=== PATIENT | male | born 1960 | race Caucasian/White ===

== ENCOUNTER 2021-05-12 11:07 | Inpatient (IN) | payer OTHER ==
[~2021-05-12] VITALS: Ht 190.5 cm; Wt 110.6 kg
[~2021-05-12 11:07] MED LIST: CLINDAMYCIN300 MG PO; FLAGYL500 MG PO; FLEXERIL10 MG PO; LORTAB 7.5/5001 TAB PO; PERCOCET 325 MG1 TA2 PO; [UNRECOGNIZED DRUG - OTHER]
[2021-05-12 13:17] LABS: HEMATOCRIT 40.2 % (42.0-52.0); HEMOGLOBIN 14.3 g/dl (13.5-18.0); MEAN CELL VOLUME 88 fl (80.0-100.0); MEAN CORPUSCULAR HEMOGLOBIN 31 pg (27-31); MEAN CORPUSCULAR HGB CONC 36 g/dl (33.0-37.0); MEAN PLATELET VOLUME 9.6 fl (7.4-10.4); PLATELET COUNT 176 K/mm3 (130-400); RED BLOOD COUNT 4.58 M/mm3 (4.20-5.60); REDCELL DISTRIBUTION WIDTH-CV 11.6 % (11.5-14.5)
[2021-05-12 13:36] LABS: CALCIUM 8.5 mg/dL (8.4-10.2); POTASSIUM 3.5 mmol/L (3.5-4.5); TOTAL PROTEIN 7.3 gm/dL (6.2-8.1)
[2021-05-12 13:38] LABS: BAND 14 % (0-10); NEUTROPHILS 62 % (42.0-75.2); PLATELET ESTIMATE NORMAL (NORMAL)
[2021-05-12 13:39] LABS: LYMPHOCYTE 15 % (20.0-51.0)
[2021-05-12 13:43] LABS: TROPONIN-I 0.029 ng/mL (0.00-0.033)
[2021-05-12 13:50] LABS: ARTERIAL BLD GAS O2 SATURATION 94.3 % (92-100); ARTERIAL BLD GAS TCO2 CT 26.2; ARTERIAL BLOOD GAS BASE EXCESS 3.2 (-2-2); ARTERIAL BLOOD GAS HCO3 25.3 meq/L (22-26); ARTERIAL BLOOD GAS PCO2 31.2 mmHg (35-45); ARTERIAL BLOOD GAS PO2 64.4 mmHg (80-100); ARTERIAL BLOOD GAS pH 7.53 (7.35-7.45)
[2021-05-12 14:32] LABS: ALBUMIN 3.1 gm/dL (3.4-4.8); CREATININE, serum 1.01 mg/dL (0.72-1.25)
[2021-05-12 15:48] LABS: COLLECTION METHOD CLEAN CATCH
[2021-05-12 15:55] LABS: MUCOUS Present (NOT PRESENT); PH 5 (5-8); SQUAMOUS EPITHELIAL None Seen /hpf (0-10); URINE APPEARANCE Clear (CLEAR/HAZY); URINE BILIRUBIN Negative (NEGATIVE); URINE BLOOD 1+ (NEGATIVE); URINE COLOR Yellow (YELLOW); URINE GLUCOSE Negative (NEGATIVE); URINE KETONE Negative (NEGATIVE); URINE LEUKOCYTE ESTERASE Negative (NEGATIVE); URINE NITRATE Negative (NEGATIVE); URINE PROTEIN(semi-quant) Negative (NEGATIVE); URINE RBC None Seen /hpf (0-2); URINE UROBILINOGEN Negative (NEGATIVE)
[2021-05-12 16:00] LABS: URINE BACTERIA None Seen /hpf (NONE SEEN)
[2021-05-12 19:50] VITALS: BP 118/82; PULSE 94; TEMP 99.8
[2021-05-12 19:54] VITALS: BP 130/62; PULSE 78; TEMP 97.8
--- NOTE | 2021-05-12 21:06 | NUR ---
Admission assessment completed alert/oriented, vital signs stable, lungs CTA/ diminished lower lobes, requiring 7L. o2 to maintain sats, heart RRR/distal pulses are palpable, hx of CAD with stents 3hr troponin 0.34 and 6hr WNL, denies any chest pain or discomfort, SR on tele, has a cough / procutive of yellowish/clear sputum at times, I did not observe any sputum at this time, PMH/ meds/ allergies/ pharmacy reviewed with the patient, he denies other needs at this time, will continue to monitor
[2021-05-12 23:51] VITALS: BP 123/77; PULSE 59; TEMP 98.7
[2021-05-13 04:46] VITALS: BP 140/118; PULSE 63; TEMP 98.8
[2021-05-13 05:25] VITALS: BP 142/79; PULSE 81
[2021-05-13] MEDS ORDERED: ASPIRIN E.C. 8181 MG PO (05:27)
[2021-05-13] MEDS ORDERED: ZESTRIL 10MG10 MG PO (05:27)
[2021-05-13] MEDS ORDERED: SYNTHROID0.175 MG PO (05:28)
[2021-05-13] MEDS ORDERED: NITROSTAT0.4 MG/TAB SL (05:29)
[2021-05-13 07:43] LABS: BASO % 0.2 % (0.0-2.0); GRAN % 87.5 % (42.2-75.2); HEMATOCRIT 43.7 % (42.0-52.0); LYMPH # 0.9 K/mm3 (1.2-3.4); LYMPH % 8.8 % (20.0-51.0); MEAN CELL VOLUME 91 fl (80.0-100.0); MEAN CORPUSCULAR HEMOGLOBIN 31 pg (27-31); MEAN CORPUSCULAR HGB CONC 34 g/dl (33.0-37.0); MEAN PLATELET VOLUME 10.2 fl (7.4-10.4); MONO # 0.3 K/mm3 (0.1-0.6); MONO % 2.8 % (1.7-9.3); PLATELET COUNT 245 K/mm3 (130-400); RED BLOOD COUNT 4.83 M/mm3 (4.20-5.60); REDCELL DISTRIBUTION WIDTH-CV 11.7 % (11.5-14.5)
[2021-05-13 07:52] LABS: ALBUMIN 3.2 gm/dL (3.4-4.8); BILIRUBIN,TOTAL 1.3 mg/dL (0.2-1.2); C-REACTIVE PROTEIN 18.05 mg/dL (0.00-0.50); CREATININE, serum 1.24 mg/dL (0.72-1.25); MAGNESIUM 2.7 mg/dL (1.6-2.6); POTASSIUM 3.2 mmol/L (3.5-4.5); TOTAL PROTEIN 7.8 gm/dL (6.2-8.1)
[2021-05-13 08:04] LABS: TROPONIN-I 0.058 ng/mL (0.00-0.033)
[2021-05-13 08:17] VITALS: BP 109/56; PULSE 63; TEMP 98.3
--- NOTE | 2021-05-13 10:11 | NUR ---
PT RESTING IN BED. MORNING MEDICATIONS GIVEN. SHIFT ASSESSMENT COMPLETED. REPORTS PAIN ON THE TOP OF HIS LUNGS THAT FEEL LIKES THEY'RE BURNING. REPORTS A LACK OF APPETITE FOR ABOUT A WEEK, IS ATTEMPTING TO EAT SOME BREAKFAST. DENIES ANY NEEDS. WILL CONTINUE TO MONITOR.
--- NOTE | 2021-05-13 10:19 | NUR ---
The patient is COVID positive. SW contacted the patient to discuss discharge plan. The patient reports that he mainly lives in [place], [place]; but comes back to [place] a lot to visit family and friends. He reports that he lives alone and will stay with his daughter while here, friends, or his trailer. He reports independence with ADLs and has a walking stick. The patient states that he was just set up with a female provider at the [facility] and has not met her yet. He receives his medications from the [facility]. The patient does not have a DPOA-HC, but he was interested in obtaining a form upon discharge. He was not interested in completing at this time. He reports that he is and has three children: Sally (ph#[phone], [place]), Marc ([place]), and Mata ([place]). SW informed him how his children are his next of kin. The patient verbalized understanding. The patient states that he will probably stay in [place] for a bit after discharge. The patient is currently on 5 liters of oxygen. SW to continue to monitor. *Discharge plan: home*
[2021-05-13 12:07] VITALS: BP 108/64; PULSE 57; TEMP 98.4
[2021-05-13] MEDS ORDERED: LYRICA 75MG CAP75 MG PO (12:07)
[2021-05-13] MEDS ORDERED: PRAVACHOL 40MG40 MG PO (12:13)
[2021-05-13 15:47] VITALS: BP 125/82; PULSE 62; TEMP 98.2
--- NOTE | 2021-05-13 20:30 | NUR ---
Initial shift assessment done- pleasant, alert/oriented, VSS, o2 at 3L/nc at 93% o2 sats,Tele on. states he has had "pain' all his life-denies need for pain meds . Right hand INT-
[2021-05-13 21:15] VITALS: BP 120/70; PULSE 61; TEMP 98.4
[2021-05-14 00:23] VITALS: BP 121/69; PULSE 56; TEMP 98
[2021-05-14 04:16] VITALS: BP 109/71; PULSE 56; TEMP 98.8
--- NOTE | 2021-05-14 04:24 | NUR ---
Tylenol given for leg/shoulder and hip pain a few hours ago- some relief. VSS, o2 sats 95-99% on 3L/nc.
[2021-05-14 07:54] VITALS: BP 112/75; PULSE 60; TEMP 97.5
--- NOTE | 2021-05-14 08:59 | NUR ---
PT RESTING IN BED. MORNING MEDICATIONS GIVEN. SHIFT ASSESSMENT COMPLETED. DENIES ANY NEEDS, REQUIRING 3L VIA NC. WILL CONTINUE TO MONITOR.
[2021-05-14 09:08] LABS: HEMATOCRIT 41.6 % (42.0-52.0); HEMOGLOBIN 14.3 g/dl (13.5-18.0); MEAN CELL VOLUME 89 fl (80.0-100.0); MEAN CORPUSCULAR HEMOGLOBIN 31 pg (27-31); MEAN CORPUSCULAR HGB CONC 34 g/dl (33.0-37.0); MEAN PLATELET VOLUME 9.9 fl (7.4-10.4); PLATELET COUNT 244 K/mm3 (130-400); RED BLOOD COUNT 4.67 M/mm3 (4.20-5.60); REDCELL DISTRIBUTION WIDTH-CV 11.6 % (11.5-14.5)
[2021-05-14 09:25] LABS: C-REACTIVE PROTEIN 9.34 mg/dL (0.00-0.50); CALCIUM 8.5 mg/dL (8.4-10.2); CREATININE, serum 1.04 mg/dL (0.72-1.25); POTASSIUM 3.9 mmol/L (3.5-4.5)
[2021-05-14 09:46] LABS: TSH w REFLEX 31.233 uIU/mL (0.350-4.940)
[2021-05-14 10:07] LABS: BILIRUBIN,DIRECT 0.4 mg/dL (0.0-0.5); BILIRUBIN,TOTAL 0.9 mg/dL (0.2-1.2); TOTAL PROTEIN 6.9 gm/dL (6.2-8.1)
[2021-05-14 10:43] LABS: LYMPHOCYTE 16 % (20.0-51.0); NEUTROPHILS 82 % (42.0-75.2); PLATELET ESTIMATE NORMAL (NORMAL)
[2021-05-14 12:03] VITALS: BP 128/80; PULSE 51; TEMP 98.1
[2021-05-14 16:40] VITALS: BP 134/70; PULSE 54; TEMP 98
--- NOTE | 2021-05-14 20:00 | NUR ---
PATIENT IS A&O. VSS WITH TELE INPLACE. 02 AT 1L PER NC WITH SATS AT 93%. DENIES SOA, DIZZINESS, PAIN OR NAUSEA. PATIENT IS COVID POSITIVE AND ON DROPPLET CONTACT. A&P LUNG HENNING ARE CLEAR. PATIENT INDEPENDENT IN ROOM. PM MEDS GIVEN. HEAD TO TOE ASSESSMENT COMPLETE. NO OTHER NEEDS. CALL LIGHT IN REACH.
[2021-05-14 20:01] VITALS: BP 123/70; PULSE 55; TEMP 98.1
[2021-05-15 00:24] VITALS: BP 112/78; PULSE 51; TEMP 98.2
[2021-05-15 04:05] VITALS: BP 107/68; PULSE 51; TEMP 98.2
[2021-05-15 05:42] LABS: HEMATOCRIT 41.9 % (42.0-52.0); MEAN CELL VOLUME 92 fl (80.0-100.0); MEAN CORPUSCULAR HEMOGLOBIN 31 pg (27-31); MEAN CORPUSCULAR HGB CONC 33 g/dl (33.0-37.0); MEAN PLATELET VOLUME 10.2 fl (7.4-10.4); PLATELET COUNT 322 K/mm3 (130-400); RED BLOOD COUNT 4.55 M/mm3 (4.20-5.60); REDCELL DISTRIBUTION WIDTH-CV 11.8 % (11.5-14.5)
[2021-05-15 05:56] LABS: CALCIUM 8.6 mg/dL (8.4-10.2); CREATININE, serum 1.14 mg/dL (0.72-1.25); POTASSIUM 3.8 mmol/L (3.5-4.5); TOTAL PROTEIN 6.8 gm/dL (6.2-8.1)
[2021-05-15 07:22] LABS: BAND 5 % (0-10); EOSINOPHIL 1 % (0-4); LYMPHOCYTE 14 % (20.0-51.0); NEUTROPHILS 77 % (42.0-75.2); PLATELET ESTIMATE NORMAL (NORMAL)
[2021-05-15 07:54] VITALS: BP 112/5; PULSE 63; TEMP 98
[2021-05-15] MEDS ORDERED: DECADRON6 MG PO (08:52)
--- NOTE | 2021-05-15 09:05 | NUR ---
PT RESTING IN BED. MORNING MEDICATIONS GIVEN. SHIFT ASSESSMENT COMPLETED. REPORTS MILD PAIN AND TROUBLE SLEEPING OVER NIGHT. EXERCISE OXIMETERY TO BE COMPLETED TO DAY. DISCHARGE PENDING. CURRENTLY ON ROOM AIR. WILL CONTINUE TO MONITOR.
[2021-05-15] MEDS ORDERED: SYNTHROID0.2 MG/TAB PO ×2 (09:39)
[2021-05-15] MEDS ORDERED: PROTONIX 40MG T40 MG PO (09:53)
[2021-05-15 12:03] VITALS: BP 119/69; PULSE 60; TEMP 98.3
[2021-05-15 16:00] VITALS: BP 126/84; PULSE 77; TEMP 97.1
--- NOTE | 2021-05-15 17:04 | NUR ---
Report recieved from ROSSY Mccoy. Patient currently requiring 3L of O2 via nasal cannula. Denies any pain, discomfort, or further needs at this time. VSS. Patient A&O. Call light in reach.
[2021-05-15 20:22] VITALS: BP 107/58; PULSE 71; TEMP 98.3
--- NOTE | 2021-05-15 20:30 | NUR ---
Initial shift assessment done- states feeling better,, would like a shower tonight-so will help him do that,,states some pain to shoulders/hips 09/16,,will give tylenol as ordered, tele on SR, o2 at 3L/nc-hoping to go home soon
[2021-05-16] VITALS (7 sets, daily range): BP systolic 104–134; BP diastolic 57–84; PULSE 50–59; TEMP 97.5–98.4
--- NOTE | 2021-05-16 01:00 | NUR ---
pipe organ technician called floor to states that pts heart rate is dropping to 42-45/min,,pt just sleeping soundly-- Lynda GRAY called and order changed to call when under 40/min.
--- NOTE | 2021-05-16 05:20 | NUR ---
Has slept fair last night- VSS o2 sats 96% on the 3L/nc. States having some hip pain this morning-Tylenol given as ordered
[2021-05-16 06:44] LABS: BASO % 0.2 % (0.0-2.0); EOS % 0.4 % (0.0-4.0); GRAN # 7.6 K/mm3 (1.4-6.5); GRAN % 77.8 % (42.2-75.2); HEMATOCRIT 40.7 % (42.0-52.0); HEMOGLOBIN 13.7 g/dl (13.5-18.0); LYMPH # 1.4 K/mm3 (1.2-3.4); LYMPH % 14.6 % (20.0-51.0); MEAN CELL VOLUME 91 fl (80.0-100.0); MEAN CORPUSCULAR HEMOGLOBIN 31 pg (27-31); MEAN CORPUSCULAR HGB CONC 34 g/dl (33.0-37.0); MEAN PLATELET VOLUME 9.8 fl (7.4-10.4); MONO # 0.5 K/mm3 (0.1-0.6); MONO % 5.6 % (1.7-9.3); PLATELET COUNT 369 K/mm3 (130-400); RED BLOOD COUNT 4.49 M/mm3 (4.20-5.60); REDCELL DISTRIBUTION WIDTH-CV 11.6 % (11.5-14.5)
[2021-05-16 07:06] LABS: CALCIUM 8.6 mg/dL (8.4-10.2); CREATININE, serum 1.05 mg/dL (0.72-1.25); POTASSIUM 3.7 mmol/L (3.5-4.5)
--- NOTE | 2021-05-16 08:30 | NUR ---
Pt. progressing w/ plan of care. Pt. reports dyspnea upon exertion and light headed at times. AM meds given and assessment complete. Needs addressed. Call light and belongings in reach.
--- NOTE | 2021-05-16 16:19 | NUR ---
The patient may be able to discharge over the weekend. JACQUI contacted the patient to review discharge plan. The patient reports that he will likely return back to his friends house in [place] and stay with him a bit. He reports that he may then go stay with his daughter in [place] for awhile. The patient's [facility] is [facility]. JACQUI informed him how we will have to go through the [facility] to order his oxygen, if he qualifies. The patient verbalized understanding and is in agreement to this. *Discharge plan: Staying with a friend in [place]*
--- NOTE | 2021-05-16 17:51 | NUR ---
Pt. progressing w/ plan of care. Pt. remains on 3L O2 NC and doing well. New IV placed to R forearm, IV to R hand was leaking. Remdesivir infusing. Pt. denies issues, call light and belongings in reach.
--- NOTE | 2021-05-17 00:01 | NUR ---
ASSESSMENT COMPLETE FOR THIS SHIFT. PT COOPERATIVE WITH CARES. PT RESTING IN BED WATCHING TV. PT COMPLAINED OF GENERALIZED PAIN. PT GIVEN TYLENOL FOR PAIN. PAIN REDUCED WITH MEDICATION. PT DENIES PALPITATIONS, SOB, OR DIZZINESS. PT'S O2 REDUCED TO 1.5L. O2 STATS @ 94% ON 1.5L. PT STATES HE HAS NO OTHER NEEDS AT THIS TIME. CALL LIGHT WITHIN REACH.
[2021-05-17 04:32] VITALS: BP 137/72; PULSE 48; TEMP 98.6
[2021-05-17 05:38] LABS: HEMATOCRIT 42.2 % (42.0-52.0); HEMOGLOBIN 13.9 g/dl (13.5-18.0); MEAN CELL VOLUME 93 fl (80.0-100.0); MEAN CORPUSCULAR HEMOGLOBIN 31 pg (27-31); MEAN CORPUSCULAR HGB CONC 33 g/dl (33.0-37.0); MEAN PLATELET VOLUME 10.5 fl (7.4-10.4); PLATELET COUNT 343 K/mm3 (130-400); RED BLOOD COUNT 4.55 M/mm3 (4.20-5.60); REDCELL DISTRIBUTION WIDTH-CV 11.6 % (11.5-14.5)
[2021-05-17 06:01] LABS: ALBUMIN 2.9 gm/dL (3.4-4.8); BILIRUBIN,TOTAL 0.9 mg/dL (0.2-1.2); C-REACTIVE PROTEIN 6.86 mg/dL (0.00-0.50); CALCIUM 8.8 mg/dL (8.4-10.2); POTASSIUM 4.4 mmol/L (3.5-4.5); TOTAL PROTEIN 6.8 gm/dL (6.2-8.1)
[2021-05-17 06:27] LABS: BAND 3 % (0-10); EOSINOPHIL 1 % (0-4); LYMPHOCYTE 14 % (20.0-51.0); METAMYELOCYTE 2 % (0-0); MYELOCYTE 1 % (0-0); NEUTROPHILS 73 % (42.0-75.2)
[2021-05-17 08:18] VITALS: BP 121/71; PULSE 55; TEMP 98.3
--- NOTE | 2021-05-17 11:17 | NUR ---
Pt. progressing w/ plan of care. Pt. reports he gets winded OOB to use the restroom. AM meds given and assessment complete. Needs addressed, call light and belongings in reach.
[2021-05-17 11:44] VITALS: BP 106/68; PULSE 70; TEMP 98.5
[2021-05-17 15:52] VITALS: BP 117/69; PULSE 58; TEMP 98.6
--- NOTE | 2021-05-17 17:03 | NUR ---
Pt. remains on room air. Pt. sitting up in the chair and reports it helps with his chronic hip pain. Pt. reports he does feel winded at times when he is sitting in the chair or moving to the bathroom. Needs addressed, call light and belongings in reach.
[2021-05-17 19:55] VITALS: BP 128/68; PULSE 56; TEMP 98.7
--- NOTE | 2021-05-18 00:05 | NUR ---
ASSESSMENT COMPLETE FOR THIS SHIFT. PT JUST SHOWERED INDEPENDENTLY. I CHECKED HIS O2 STATS AND HE WAS AT 99%. TELE REPLACED ON PT AND EVENING MEDS GIVEN. PT COMPLAINED OF BACK PAIN. TYLENOL GIVEN FOR PAIN. PT DENIED PALPITATIONS, SOB OR DIZZINESS. PT NOW RESTING IN BED, READY FOR SLEEP. PT STATES HE HAS NO OTHER NEEDS AT THIS TIME. CALL LIGHT WITHIN REACH.
[2021-05-18 00:25] VITALS: BP 134/68; PULSE 67; TEMP 98.6
[2021-05-18 04:30] VITALS: BP 117/67; PULSE 46; TEMP 97.8
--- NOTE | 2021-05-18 07:13 | NUR ---
PT IS INDEPENDENT IN THE ROOM, DENIES ANY NEEDS FROM THE DOOR. PT IS ON RA.
[2021-05-18 08:21] VITALS: BP 108/60; PULSE 54; TEMP 97.9
--- NOTE | 2021-05-18 08:36 | NUR ---
PT IS NOT ON O2, DENIES ANY COMPLAINTS, STATES HE FEELS MUCH BETTER THAN WHEN HE ARRIVE. ASSESSMENT COMPLETED, PT IS DOING VERY WELL, HE IS 92-93% ON ROOM AIR. EDUCATED THE PATIENT MONITORING HIS O2 AND BEING AWARE OF SOB.
[2021-05-18 10:34] LABS: HEMOGLOBIN 14.3 g/dl (13.5-18.0); MEAN CELL VOLUME 91 fl (80.0-100.0); MEAN CORPUSCULAR HEMOGLOBIN 31 pg (27-31); MEAN CORPUSCULAR HGB CONC 34 g/dl (33.0-37.0); MEAN PLATELET VOLUME 9.6 fl (7.4-10.4); PLATELET COUNT 411 K/mm3 (130-400); RED BLOOD COUNT 4.61 M/mm3 (4.20-5.60); REDCELL DISTRIBUTION WIDTH-CV 11.7 % (11.5-14.5)
[2021-05-18 10:48] LABS: CALCIUM 8.7 mg/dL (8.4-10.2); CREATININE, serum 1.08 mg/dL (0.72-1.25); POTASSIUM 3.8 mmol/L (3.5-4.5)
[2021-05-18 11:19] VITALS: BP 106/68; PULSE 67; TEMP 98.4
[2021-05-18] MEDS ORDERED: PROAIR HFA0.09 MG/AC IH (12:09)
[2021-05-18] MEDS ORDERED: PROTONIX 40MG T40 MG PO (12:09)
[2021-05-18 13:08] LABS: EOSINOPHIL 4 % (0-4); LYMPHOCYTE 23 % (20.0-51.0); NEUTROPHILS 68 % (42.0-75.2)
[2021-05-18 13:09] LABS: PLATELET ESTIMATE INCREASED (NORMAL)
--- NOTE | 2021-05-18 14:30 | NUR ---
PT READY TO DISCHARGE, HE HAS BEEN GIVEN PACKET, AND EDUCATION HAS BEEN GIVEN. THE PATIENT WAS ESCORTED OUT AT 1430.
== END 2021-05-18 14:30 | disposition home or self-care (01) | DRG 177 ==
LOC: COL.ER 11:07 → MEDICAL 13:34
PROVIDERS: Emergency Medicine; Physician Assistant; Student in an Organized Health Care Education/Training Program; ADMIT Internal Medicine
PROC: XW033E5 Introduction of Remdesivir Anti-infective into Peripheral Vein, Percutaneous Approach, New Technology Group 5 (ICD-10-PCS; principal; 2021-05-12)
PROC: 5A0945A Assistance with Respiratory Ventilation, 24-96 Consecutive Hours, High Flow/Velocity Cannula (ICD-10-PCS; 2021-05-13)
DX: U07.1 COVID-19 (principal); J96.01 Acute respiratory failure with hypoxia; J12.82 Pneumonia due to coronavirus disease 2019; I10 Essential (primary) hypertension; E03.9 Hypothyroidism, unspecified; J45.909 Unspecified asthma, uncomplicated; E87.6 Hypokalemia; E78.5 Hyperlipidemia, unspecified; I25.10 Atherosclerotic heart disease of native coronary artery without angina pectoris; Z95.5 Presence of coronary angioplasty implant and graft; Z87.442 Personal history of urinary calculi
CPT/HCPCS: 99223-AI; 99232-AI; 99233-AI; 99239; A9284; J0248; J0696; J1100; J1650; J7050; J8540; Q9967